=== PATIENT | female | born 1975 | race African-American/Black ===

== ENCOUNTER 2017-01-14 10:34 | Inpatient (IN) | payer BC, OTHER ==
[2017-01-14] MEDS ORDERED: TRIMETHOBENZAMIDE HCL 200MG/2ML INJ IM PRN (10:40)
[2017-01-14] MEDS ORDERED: SODIUM CHLORIDE 1,000 ML IV SCH (10:45)
[2017-01-14 11:33] VITALS: BMI 39.1
[2017-01-14] MEDS ORDERED: BUPIVACAINE HCL/PF 2.5 MG/ML - 30 ML VIAL IJ ONE (13:18)
[2017-01-14] MEDS ORDERED: GENTAMICIN SO4 80 MG/2 ML VIAL ONE (13:18)
[2017-01-14] MEDS ORDERED: POLYMYXIN B SULFATE 500,000 UNIT VIAL ONE (13:19)
[2017-01-14] MEDS ORDERED: PROPOFOL 20 ML ONE (13:31)
[2017-01-14] MEDS ORDERED: SUCCINYLCHOLINE CHLORIDE 200 MG/10 ML VIAL ONE (13:32)
[2017-01-14] MEDS ORDERED: ONDANSETRON 4 MG/2 ML VIAL ONE (13:32)
[2017-01-14] MEDS ORDERED: ROCURONIUM BROMIDE 50 MG/5 ML VIAL ONE (13:32)
[2017-01-14] MEDS ORDERED: DEXAMETHASONE SOD PHOSPHATE 4 MG/1 ML VIAL ONE (13:32)
[2017-01-14] MEDS ORDERED: MIDAZOLAM HCL 2 MG/2 ML SINGLE DOSE VIAL ONE ×2 (13:32)
[2017-01-14] MEDS ORDERED: ceFAZolin SODIUM 1 GM VIAL ONE (14:15)
[2017-01-14] MEDS ORDERED: ceFAZolin SODIUM 1 GM VIAL IVPB ONE (14:16)
[2017-01-14] MEDS ORDERED: BUPIVACAINE HCL/PF 0.25% (2.5MG/ML) 10 ML VIAL IJ ONE (14:50)
[2017-01-14] MEDS ORDERED: GLYCOPYRROLATE 0.2 MG/1 ML VIAL ONE (15:42)
[2017-01-14] MEDS ORDERED: NEOSTIGMINE METHYLSULFATE 0.5 MG/ML - 10 ML MDV ONE (15:42)
[2017-01-14] MEDS ORDERED: HYDROmorphone *PCA* 10MG/50ML DISP.SYRIN PCA ONE (15:47)
[2017-01-14] MEDS ORDERED: FAMOTIDINE 20 MG/50 ML IVPB ONE (15:48)
[2017-01-14] MEDS ORDERED: LABETALOL HCL 5 MG/1 ML (100MG/20 ML VIAL) ONE (15:49)
[2017-01-14] MEDS ORDERED: ONDANSETRON 4 MG/2 ML VIAL IVPUSH PRN (16:03)
[2017-01-14] MEDS ORDERED: FAMOTIDINE 20 MG PREMIXED IVPB IVPB ONE (16:10)
[2017-01-14] MEDS ORDERED: PROMETHAZINE HCL 25 MG/1 ML VIAL ONE (16:11)
[2017-01-14] MEDS ORDERED: PROMETHAZINE HCL 25 MG/1 ML VIAL IVPUSH PRN (16:12)
[2017-01-14] MEDS ORDERED: HYDROmorphone *PCA* 10MG/50ML DISP.SYRIN PCA SCH (16:15)
[2017-01-14] MEDS ORDERED: LACTATED RINGERS SOLUTION 1,000 ML IV SCH (16:15)
[2017-01-14] MEDS ORDERED: FAMOTIDINE 20 MG/50 ML IVPB 50 ML IVPB ONE (16:23)
[2017-01-14] MEDS ORDERED: LABETALOL HCL 5 MG/1 ML (100MG/20 ML VIAL) IVPUSH ONE (16:50)
[2017-01-14 17:56] LABS: ALBUMIN 3.5 g/dl (3.5-5.0); ALK PHOS 45 U/L (32-92); ANION GAP 9 (8-16); CALCIUM 8.3 mg/dl (8.4-10.2); CO2 23 mmol/L (22-28); CREATININE 0.6 mg/dl (0.6-1.3); GLUCOSE,RANDOM 134 mg/dl (74-106); SGOT/AST 29 U/L (10-42); SGPT/ALT 26 U/L (10-40); TOT PROT 7.5 g/dl (6.4-8.3)
[2017-01-14 17:57] LABS: BILIRUBIN,TOTAL < 0.3 mg/dl (0.2-1.0)
[2017-01-14 18:00] LABS: MCH 29.1 pg (25.7-33.7); MCHC 34.1 g/dl (32.0-36.0); MEAN CELL VOLUME 85.4 fl (80-96); MEAN PLT VOLUME 9.1 fl (7.5-11.1); PLATELET COUNT 247 K/MM3 (134-434); RDW 13.1 % (11.6-15.6)
[2017-01-14] MEDS: ENOXAPARIN NA (PORCINE) 40 MG/0.4 ML DISP.SYRIN SQ SCH (21:40)
[2017-01-14] MEDS: FAMOTIDINE 20 MG/50 ML IVPB 50 ML IVPB SCH (21:40)
[2017-01-15] MEDS ORDERED: ONDANSETRON 4 MG/2 ML VIAL IVPB PRN (04:00)
[2017-01-15 08:43] LABS: MCH 28.5 pg (25.7-33.7); MCHC 32.7 g/dl (32.0-36.0); MEAN CELL VOLUME 87.2 fl (80-96); MEAN PLT VOLUME 9.3 fl (7.5-11.1); PLATELET COUNT 270 K/MM3 (134-434); WHITE BLOOD COUNT 17.2 K/mm3 (4.0-10.0)
[2017-01-15 09:04] LABS: ALBUMIN 3.5 g/dl (3.5-5.0); ALK PHOS 45 U/L (32-92); ANION GAP 8 (8-16); BILIRUBIN,TOTAL 0.4 mg/dl (0.2-1.0); CALCIUM 8.2 mg/dl (8.4-10.2); CO2 23 mmol/L (22-28); CREATININE 0.6 mg/dl (0.6-1.3); GLUCOSE,RANDOM 104 mg/dl (74-106); SGOT/AST 29 U/L (10-42); SGPT/ALT 26 U/L (10-40); TOT PROT 7.4 g/dl (6.4-8.3)
[2017-01-15] MEDS: ENOXAPARIN NA (PORCINE) 40 MG/0.4 ML DISP.SYRIN SQ SCH (09:57)
[2017-01-15] MEDS: FAMOTIDINE 20 MG/50 ML IVPB 50 ML IVPB SCH (09:57)
[2017-01-15] MEDS ORDERED: ACETAMINOPHEN 325 MG TABLET (FP) PO PRN (12:01)
[2017-01-15] MEDS ORDERED: oxyCODONE HCL 5 MG TABLET PO PRN (12:01)
--- NOTE | 2017-01-15 12:01 | PN ---
Progress Note (short form) - Note Progress Note: POD 1 Laparoscopic vertical sleeve gastrectomy + Nausea Pain controlled Vital Signs Period Temp Pulse Resp BP Sys/Rojas Pulse Ox Last 24 Hr 18 F-99 F 76-99 16-20 157-185/87-98 99-100 ABd soft, incisional tenderness CBC, BMP 01/15/17 07:00 01/15/17 07:00 UGI- no leak/obstruction OOB 2 ounces clears D/C ramires/telemetry
[2017-01-15] MEDS ORDERED: SODIUM CHLORIDE 1,000 ML IV SCH (12:15)
[2017-01-15] MEDS ORDERED: PROMETHAZINE HCL 25 MG/1 ML VIAL IVPUSH PRN ×2 (12:22→20:00)
[2017-01-15] MEDS ORDERED: PROMETHAZINE HCL 25 MG/1 ML VIAL IVPUSH ONE (12:30)
[2017-01-15 14:12] VITALS: BP 177/95; PULSE 100; TEMP 99.4
--- NOTE | 2017-01-15 14:14 | OP ---
DATE OF OPERATION: 01/14/2017 PREOPERATIVE DIAGNOSIS: Morbid obesity. POSTOPERATIVE DIAGNOSIS: Morbid obesity. PROCEDURES PERFORMED: 1. Laparoscopic vertical sleeve gastrectomy. 2. Diagnostic laparoscopy. OPERATING SURGEON: Cole Marquez MD COMMUNITY FACILITATOR: Garett Delacruz MD ANESTHESIA: General. EXPECTED BLOOD LOSS: 30 mL. OPERATIVE PROCEDURE: The patient was brought into the operating room and placed on the OR table in supine position. All precautions were taken initially including padding for the back and the feet, and Venodyne boots were placed on both lower extremities. At that point, the abdomen was prepped and draped in the usual manner. A Veress needle was placed in the left upper quadrant of the abdomen and pneumoperitoneum established. A No. 12 bladeless trocar was placed to the left upper quadrant. Through that trocar, laparoscopic camera was placed. Under direct vision, No. 15 bladeless trocar was placed in midline above the umbilicus followed by a No. 5 bladeless trocar in the right upper quadrant and No. 5 bladeless trocar below the left costal margin. A Darian liver retractor was then placed to the epigastrium to retract the left lobe of the liver. The patient was then placed in a 20-degree reverse Trendelenburg position, and the pylorus was noted on distal stomach. Then 6 cm was measured proximally, and here I the greater curve, the LigaSure device was used to dissect the gastrocolic ligament off the greater curve of the stomach. With the operating surgeon holding his stomach to the anterior abdominal wall, the assistant counsel surgeon retracted the gastrocolic ligament inferiorly. The lesser sac was entered, and then dissection continued superiorly along the greater curve until a final short gastric vessel between the proximal fundus and the superior pole of the spleen was divided. At this juncture, with the bougie in place, which was a No. 36. A series of nicanor was performed with the first 2 being backloaded with buttressing material 6 cm proximal pylorus along the bougie. Because the bougie was a 36, little room was off the bougie so that the sleeve would not be too tight. After the first 2, this was followed by a series of purple nicanor also along the bougie a little bit off. It should be noted that prior to firing each staple, both the anterior and posterior trujillo were checked that they were equal, and the area of the esophagogastric junction approximately 1 to 1-1/2 remained. At all times, the assistant counsel surgeon retracted the resected stomach laterally as the operating surgeon pulled the remaining lesser curvature of the stomach medially. Finally, once the entire stomach was divided, the greater curvature was now removed from the area. At this point, with saline placed around the staple line, Anesthesia inserted air into the bougie, which showed the entire stomach distended. No signs of down the pylorus and no leaks were noted. At this point, the greater curve was removed with No. 15 trocar and sent off the field as a specimen to pathology. The bougie was removed by Anesthesia as was the liver retractor. Under direct vision, the No. 15 and No. 12 trocar sites were closed with endoclosure device with an internal hernia to prevent bleeding. Under direct vision, all trocars were removed, and pneumoperitoneum was released. All trocar sites then received 0.25% Marcaine and closed with 4-0 Biosyn in subcuticular fashion. Dressings were applied. The patient was awoken from anesthesia and transferred out of the operating room to the recovery room in stable condition. COLE MARQUEZ M.D. [id number]
--- NOTE | 2017-01-15 15:36 | PN ---
Progress Note (short form) - Note Progress Note: 41F POD1 s/p lap gastric sleeve resection under GA-ETT doing well. AVSS, patient states that pain is well controlled, reports no anesthetic complications. D/C dilaudid IV HEAD USHER today, switch to oral pain medication.
--- NOTE | 2017-01-15 16:22 | PN ---
Progress Note (short form) - Note Progress Note: Afebrile P- 86-100 BP- 150-170/90 PT doing very well Had nausea, now gone with METAL CHECKER stopped WBC-17.2 ( no change) UGI- no leak, no obstruction P- PO clear liquids- 2 oz po TID Cont DVT prophylaxis
[2017-01-15] MEDS ORDERED: ALBUTEROL SO4 6.7 GM HFA INHALER IH ONE (17:28)
--- NOTE | 2017-01-18 15:17 | PATH ---
Surgical Pathology Report Patient Name: ERICH GALAVIZ Med. Rec. #: [id number] /Age/Gender: 1975 (Age: 41) / F Account: [id number] Location: [facility] [facility] Taken: 01/14/2017 Received: 01/14/2017 Reported: 01/18/2017 Physicians: Lyle Marquez M.D. Specimen(s) Received GREATER CURVATURE OF STOMACH Clinical History Morbid obesity Final Diagnosis GREATER CURVATURE STOMACH, LAPAROSCOPIC GASTRIC SLEEVE EXCISION: PORTION OF STOMACH SHOWING MILD CHRONIC NON-SPECIFIC INFLAMMATION. IMMUNOSTAIN IS NEGATIVE FOR H. PYLORI ORGANISMS. Electronically Signed Natacha Ivy M.D. Gross Description Received in formalin, labeled "greater curvature of stomach," is a 99 gram, 19.0 x 3.8 x 3.0 cm. portion of stomach with a stapled margin of resection. The serosa is powell-sun with minimal attached fat. The mucosa is powell-pink with focally flattened folds. No mucosal masses are identified. Instrumentation Tech sections are submitted in one cassette. 01/15/2017 [facility]01/15/2017
== END 2017-01-15 18:15 | disposition home or self-care (01) | DRG 621 ==
LOC: FM/S 10:34
PROVIDERS: ADMIT Surgery; ATTEND Surgery
PROC: 0DB64Z3 Excision of Stomach, Percutaneous Endoscopic Approach, Vertical (ICD-10-PCS; principal; 2017-01-14 12:30)
DX: E66.01 Morbid (severe) obesity due to excess calories (principal); Z68.38 Body mass index [BMI] 38.0-38.9, adult; Z71.3 Dietary counseling and surveillance
CPT/HCPCS: 36415; 74241-TC; 80053; 84703; 85027; 88305-TC; 94010; 94760; Q9967

== ENCOUNTER 2024-07-15 13:28 | Emergency (ER) | payer BC, OTHER ==
[2024-07-15 13:38] VITALS: PULSE 98; TEMP 98.3; BMI 30.7
[2024-07-15] MEDS ORDERED: AMOX TR/POT CLAV 875MG/125MG TABLETS (FP) ONE (13:52)
[2024-07-15] MEDS ORDERED: DIPHTH,PERTUSS(ACELL),TET 0.5 ML DISP.SYRIN IM ONE (13:53)
[2024-07-15] MEDS: AMOX TR/POT CLAV 875MG/125MG TABLETS (FP) PO ONE (13:56)
[2024-07-15] MEDS: DIPHTH,PERTUSS(ACELL),TET 0.5 ML DISP.SYRIN IM ONE (13:56)
[2024-07-15 14:09] VITALS: BP 168/92; RESP 18
== END 2024-07-15 14:07 | disposition home or self-care (01) ==
LOC: JERFT 13:28
PROC: 3E0234Z Introduction of Serum, Toxoid and Vaccine into Muscle, Percutaneous Approach (ICD-10-PCS; principal; 2024-07-15)
DX: S91.052A Open bite, left ankle, initial encounter (principal); W54.0XXA Bitten by dog, initial encounter; Z23 Encounter for immunization
CPT/HCPCS: 90715; 99284-25